=== PATIENT | female | born 1945 | race Caucasian/White ===

== ENCOUNTER 2017-03-23 11:30 | Emergency (ER) | payer OTHER ==
[2017-03-23] MEDS ORDERED: ONDANSETRON 4 MG/2 ML VIAL IVP ONE (11:48)
[2017-03-23] MEDS ORDERED: ONDANSETRON 4 MG/2 ML VIAL ONE (11:49)
[2017-03-23] MEDS ORDERED: HYDROmorphONE/DILAUDID 1 MG/ML INJ IVP ONE (11:57)
[2017-03-23] MEDS ORDERED: HYDROmorphONE/DILAUDID 1 MG/ML INJ ONE (11:58)
[2017-03-23 12:03] LABS: % IMMATURE GRANULYOCYTES 0.3 % (0.0-1.1); ABSOLUTE IMMATURE GRANULOCYTES 0.03 10^3/uL (0.00-0.10); ADD DIFF? NO; ADD MORPH? NO; ADD SCAN? NO; ATYPICAL LYMPHOCYTE FLAG 0 (0-99); FRAGMENT RBC FLAG 0 (0-99); HEMATOCRIT 43.4 % (38.0-47.0); HEMOGLOBIN 14.3 g/dL (12.6-16.3); LEFT SHIFT FLG 0 (0-99); LIPEMIA HEMOLYSIS FLAG 80 (0-99); MEAN CELL HEMOGLOBIN 28.1 pg (27.9-34.1); MEAN CELL HEMOGLOBIN CONCENTR. 32.9 g/dL (32.4-36.7); MEAN CELL VOLUME 85.4 fL (81.5-99.8); MEAN PLATELET VOLUME 12.1 fL (8.7-11.7); PLATELET CLUMPS FLAG 20 (0-99); PLATELET COUNT 276 10^3/uL (150-400); RED BLOOD CELL COUNT 5.08 10^6/uL (4.18-5.33); RED CELL DISTRIBUTION WIDTH 13.4 % (11.5-15.2)
[2017-03-23 12:08] LABS: ANION GAP 17 mEq/L (8-16); CALCIUM 9.8 mg/dL (8.5-10.4); CARBON DIOXIDE 23 mEq/l (22-31); CHLORIDE 105 mEq/L (97-110); CREATININE 0.8 mg/dL (0.6-1.0); GLOMERULAR FILTRATION RATE > 60; GLUCOSE 192 mg/dL (70-100); POTASSIUM 3.9 mEq/L (3.5-5.2); SODIUM 145 mEq/L (134-144)
[2017-03-23] MEDS ORDERED: IOPAMIDOL (ISOVUE-300) 100 ML BTL ONE (12:39)
--- NOTE | 2017-03-23 12:55 | EDPHY ---
H & P Time Seen by Provider: 03/23/17 11:46 HPI/ROS: CHIEF COMPLAINT: flank pain, vomiting, abdominal pain HISTORY OF PRESENT ILLNESS: 71-year-old female presents to the emergency department by ambulance with severe left flank pain, abdominal pain and vomiting. The patient states over last 2 months she has had intermittent hematuria. She has seen a urologist for this in [place] where she lives and has had CT scan as well as cystoscopy. This was done few months ago. She states the did not find anything. Since that time she has had ongoing intermittent hematuria and now has severe left flank pain and vomiting. No fevers or chills. No reported trauma. No other chest pain or difficulty breathing. REVIEW OF SYSTEMS: Constitutional: No fever, no chills. Eyes: No double or blurry vision. ENT: No sore throat. Respiratory: No cough, no shortness of breath. Cardiac: No chest pain. Gastrointestinal: Left-sided abdominal pain. Vomiting. No diarrhea. Genitourinary: No dysuria. Musculoskeletal: Left flank pain. No neck pain. Skin: No rashes. Neurological: No headache. Past Medical/Surgical History: Parathyroidectomy, hypertension, type 2 diabetic Social History: and lives in [place] Smoking Status: Never smoked Physical Exam: General Appearance: Alert, moderate distress. Eyes: Pupils equal and round. Extraocular motions are all intact. ENT: Mouth: Mucous membranes moist. Respiratory: No wheezing, rhonchi, or rales, lungs are clear to auscultation. Cardiovascular: Regular rate and rhythm. Gastrointestinal: Abdomen is soft. She has tenderness with palpation in the left upper quadrant. There is no masses, rebound or guarding noted. She has positive CVA tenderness on the left and severe pain even with just mild palpation of the left flank. No CVA tenderness on the right. Neurological: Alert and oriented x 3, cranial nerves II through XII grossly intact Skin: Warm and dry, no rashes. Musculoskeletal: Nontender to palpate along the cervical, thoracic or lumbar spine. Neck is supple. Extremities: Full range of motion and no peripheral edema. Psychiatric: Patient is oriented X 3, there is no agitation. Constitutional: Initial Vital Signs Temperature (C) 36.8 C 03/23/17 11:35 Heart Rate 64 03/23/17 11:35 Respiratory Rate 18 03/23/17 11:35 Blood Pressure 174/101 H 03/23/17 11:35 O2 Sat (%) 96 03/23/17 11:35 O2 Delivery Mode Room Air O2 (L/minute) 2 Allergies/Adverse Reactions: No Known Allergies Allergy (Unverified 03/23/17 11:35) Home Medications: Medication Instructions Recorded Lisinopril 03/23/17 Metformin 1000 mg 03/23/17 Tamsulosin HCl [Flomax] 0.4 mg PO DAILY #10 cap 03/23/17 oxyCODONE/APAP 5/325 [Percocet 1 - 2 tab PO Q4-6PRN PRN #15 tab 03/23/17 5/325] Medical Decision Making - Diagnostics Imaging Results: Imaging Impressions Abdomen CT 03/23/17 12:22 Impression: 1. 6 x 4 mm proximal left ureteral calculus results in moderate left hydronephrosis. 2. Mild constipation. Otherwise normal bowel pattern. 3. Small benign angiomyolipoma lower right kidney. No follow up is necessary. Findings discussed with Emergency Department physician golf player assistant, Tamela Pizarro , at 1309 hours on March 23, 2017. Imaging: Discussed imaging studies w/ banquet server on call Radiologist ED Course/Re-evaluation: 71-year-old female presents to the emergency department the with severe left flank pain and vomiting. The patient has normal laboratory studies. CT imaging with contrast reveals a 6 x 4 mm stone in the left proximal ureter. Moderate hydronephrosis noted. Urinalysis reveals large amount of blood, 10-15 white blood cells and 1+ bacteria. Urine cultures pending. This was discussed with Dr. Juan José Edwards, secondary supervising physician, who did not directly evaluate the patient but agrees with treatment and plan. He does not feel that antibiotics are indicated since this was a clean-catch specimen and not a cath urine. Patient will call for the results of urine culture in 48 hours. I spoke with the on-call urologist, Dr. Carlos Lux, who recommended IV Toradol. She can follow up with her urologist in [place] where she is from or she can follow up with Dr. Lux. I did offer admission of the patient, however the patient requests to be discharged home. I think this is reasonable. She required 0.5 mg of Dilaudid IV only throughout her entire stay in the emergency department. She also received 30 mg of IV Toradol. Patient felt much better upon discharge. She has ambulated to the bathroom. She is comfortable being discharged home. Differential Diagnosis: Including but not limited to kidney stone, pyelonephritis, urinary tract infection - Data Points Laboratory Results: Laboratory Results 03/23/17 11:30 03/23/17 11:30 03/23/17 03/23/17 03/23/17 14:25 11:30 11:30 WBC 10.65 10^3/uL H 10^3/uL (3.80-9.50) RBC 5.08 10^6/uL 10^6/uL (4.18-5.33) Hgb 14.3 g/dL g/dL (12.6-16.3) Hct 43.4 % % (38.0-47.0) MCV 85.4 fL fL (81.5-99.8) MCH 28.1 pg pg (27.9-34.1) MCHC 32.9 g/dL g/dL (32.4-36.7) RDW 13.4 % % (11.5-15.2) Plt Count 276 10^3/uL 10^3/uL (150-400) MPV 12.1 fL H fL (8.7-11.7) Neut % (Auto) 72.3 % % (39.3-74.2) Lymph % (Auto) 18.6 % % (15.0-45.0) [place] % (Auto) 6.9 % % (4.5-13.0) Eos % (Auto) 1.6 % % (0.6-7.6) Baso % (Auto) 0.3 % % (0.3-1.7) Nucleat RBC Rel Count 0.0 % % (0.0-0.2) Absolute Neuts (auto) 7.71 10^3/uL H 10^3/uL (1.70-6.50) Absolute Lymphs (auto) 1.98 10^3/uL 10^3/uL (1.00-3.00) Absolute Monos (auto) 0.73 10^3/uL 10^3/uL (0.30-0.80) Absolute Eos (auto) 0.17 10^3/uL 10^3/uL (0.03-0.40) Absolute Basos (auto) 0.03 10^3/uL 10^3/uL (0.02-0.10) Absolute Nucleated RBC 0.00 10^3/uL 10^3/uL (0-0.01) Immature Gran % 0.3 % % (0.0-1.1) Immature Gran # 0.03 10^3/uL 10^3/uL (0.00-0.10) Sodium 145 mEq/L H mEq/L (134-144) Potassium 3.9 mEq/L mEq/L (3.5-5.2) Chloride 105 mEq/L mEq/L (97-110) Carbon Dioxide 23 mEq/l mEq/l (22-31) Anion Gap 17 mEq/L H mEq/L (8-16) BUN 13 mg/dL mg/dL (7-23) Creatinine 0.8 mg/dL mg/dL (0.6-1.0) Estimated GFR > 60 Glucose 192 mg/dL H mg/dL (70-100) Calcium 9.8 mg/dL mg/dL (8.5-10.4) Urine Color YELLOW Urine Appearance MODERATELY TURBID Urine pH 5.0 (5.0-7.5) Ur Specific [place] > 1.035 H (1.002-1.030) Urine Protein 1+ H (NEGATIVE) Urine Ketones NEGATIVE (NEGATIVE) Urine Blood 3+ H (NEGATIVE) Urine Nitrate NEGATIVE (NEGATIVE) Urine Bilirubin NEGATIVE (NEGATIVE) Urine Urobilinogen NEGATIVE EU EU (0.2-1.0) Ur Leukocyte Esterase NEGATIVE (NEGATIVE) Urine RBC 50-182 /hpf H /hpf (0-3) Urine WBC 5-10 /hpf H /hpf (0-3) Ur Epithelial Cells NONE SEEN /lpf /lpf (NONE-1+) Urine Bacteria 1+ /hpf H /hpf (NONE SEEN) Urine Mucus TRACE /lpf /lpf (NONE-1+) Urine Glucose NEGATIVE (NEGATIVE) Medications Given: Discontinued Medications Hydromorphone HCl (Dilaudid) 0.5 mg IVP EDNOW ONE Stop: 03/23/17 11:58 Last Admin: 03/23/17 12:02 Dose: 0.5 mg Ketorolac Tromethamine (Toradol) 30 mg IVP EDNOW ONE Stop: 03/23/17 13:47 Last Admin: 03/23/17 13:53 Dose: 30 mg Ondansetron HCl (Zofran) 4 mg IVP EDNOW ONE Stop: 03/23/17 11:49 Last Admin: 03/23/17 11:50 Dose: 4 mg Tamsulosin HCl (Flomax) 0.4 mg PO EDNOW ONE Stop: 03/23/17 16:19 Last Admin: 03/23/17 16:23 Dose: 0.4 mg Departure - Departure Disposition: Home, Routine, Self-Care Clinical Impression: Renal colic on left side, Kidney stone on left side Condition: Good Instructions: Kidney Stones (ED), Renal Colic (ED) Additional Instructions: Call [phone] for the results of your urine culture in 48 hours. Ibuprofen 600 mg every 8 hours as needed for pain. Percocet for severe pain as directed. Strainer urine. Return to the emergency department if you developed fever, vomiting increasing pain, or if you feel worse in any way. Follow-up with your urologist as soon as possible. Referrals: [facility] [Other] - As per Instructions Carlos Lux MD [Medical Doctor] - As per Instructions (Urologist on-call) Prescriptions: oxyCODONE/APAP 5/325 [Percocet 5/325] 1 - 2 tab PO Q4-6PRN PRN #15 tab PRN Reason: For Moderate To Severe Pain Tamsulosin HCl [Flomax] 0.4 mg PO DAILY #10 cap
[2017-03-23] MEDS ORDERED: KETOROLAC 30 MG/1 ML SDV IVP ONE (13:46)
[2017-03-23 13:50] VITALS: RESP 18; TEMP 98.6
[2017-03-23 14:39] LABS: COLOR YELLOW; LEUKOCYTE ESTERASE,URINE NEGATIVE (NEGATIVE); NITRITE,URINE NEGATIVE (NEGATIVE)
[2017-03-23 14:51] LABS: BACTERIA 1+ /hpf (NONE SEEN); MUCUS TRACE /lpf (NONE-1+); RBC,URINE 50-182 /hpf (0-3)
[2017-03-23] MEDS ORDERED: TAMSULOSIN HCL 0.4 MG CAP PO ONE (16:18)
[2017-03-23 16:37] VITALS: BP 122/85; PULSE 69; O2SAT 96
== END 2017-03-23 16:34 | disposition home or self-care (01) ==
DX: N23 Unspecified renal colic (principal); N20.0 Calculus of kidney; I10 Essential (primary) hypertension; E11.9 Type 2 diabetes mellitus without complications; Z79.84 Long term (current) use of oral hypoglycemic drugs
CPT/HCPCS: 74177; 96374; 96375; 99285; J1170; J1885; J2405; Q9967